=== PATIENT | female | born 1950 | race Hispanic/Latino ===

== ENCOUNTER → 2018-10-29 | Outpatient (CLI) | payer MEDICARE, OTHER ==
[~2018-10-29] MED LIST: GABAPENTIN100 MG; METFORMIN HCL500 MG PO
[2018-10-29 14:49] LABS: BASOPHILS % 0.3 % (0.0-1.0); EOSINOPHILS # (AUTO) 0.2 (0.0-0.4); EOSINOPHILS % 1.9 % (0.0-6.0); HEMATOCRIT 37.2 % (34.2-44.1); HEMOGLOBIN 12.1 g/dL (12.0-16.0); LYMPHOCYTES # (AUTO) 2.8 (1.0-3.2); LYMPHOCYTES % 28.2 % (18.0-39.1); MEAN CORPUSCULAR HEMOGLOBIN 28.5 pg (28-32); MEAN CORPUSCULAR HGB CONC 32.5 g/dL (31-35); MEAN CORPUSCULAR VOLUME 87.7 fL (81-99); MONOCYTES # (AUTO) 0.4 (0.2-0.8); MONOCYTES % 4.4 % (4.4-11.3); NEUTROPHILS # (AUTO) 6.3 (2.1-6.9); NEUTROPHILS % 64.6 % (38.7-80.0); PLATELET COUNT 286 x10e3/uL (140-360); RED BLOOD COUNT 4.24 x10e6/uL (3.6-5.1); RED CELL DISTRIBUTION WIDTH 15.4 % (11.7-14.4)
== END ==
LOC: RAD 05:00 → EDSTATUS 11-04 11:30
PROVIDERS: ATTEND Internal Medicine Gastroenterology
DX: Z01.818 Encounter for other preprocedural examination (principal); Z12.11 Encounter for screening for malignant neoplasm of colon; R19.7 Diarrhea, unspecified; K21.9 Gastro-esophageal reflux disease without esophagitis; Z53.8 Procedure and treatment not carried out for other reasons
CPT/HCPCS: 36415; 85025; 93005

== ENCOUNTER → 2020-11-29 | Day surgery (SDC) | payer MEDICARE, OTHER ==
[2020-11-25 12:31] LABS: BASOPHILS # (AUTO) 0.1 (0.0-0.1); BASOPHILS % 0.5 % (0.0-1.0); EOSINOPHILS # (AUTO) 0.2 (0.0-0.4); HEMATOCRIT 35.2 % (34.2-44.1); HEMOGLOBIN 10.9 g/dL (12.0-16.0); LYMPHOCYTES # (AUTO) 2.8 (1.0-3.2); LYMPHOCYTES % 29.6 % (18.0-39.1); MEAN CORPUSCULAR HEMOGLOBIN 26.6 pg (28-32); MEAN CORPUSCULAR VOLUME 85.9 fL (81-99); MONOCYTES # (AUTO) 0.4 (0.2-0.8); MONOCYTES % 3.9 % (4.4-11.3); NEUTROPHILS # (AUTO) 6.1 (2.1-6.9); NEUTROPHILS % 63.7 % (38.7-80.0); PLATELET COUNT 303 x10e3/uL (140-360); RED CELL DISTRIBUTION WIDTH 15.2 % (11.7-14.4)
[2020-11-25 12:46] LABS: INR 0.88; PROTHROMBIN TIME 12.3 seconds (11.9-14.5)
[2020-11-25 12:47] LABS: PARTIAL THROMBOPLASTIN TIME 28.9 seconds (23.8-35.5)
[2020-11-25 12:55] LABS: ALBUMIN 3.5 g/dL (3.5-5.0); ALBUMIN/GLOBULIN RATIO 0.9 (0.8-2.0); CALCIUM 8.6 mg/dL (8.4-10.2); CHOL/HDL RATIO 4.6 (3.0-3.6); CREATININE, SERUM 0.91 mg/dL (0.57-1.11)
[2020-11-29] VITALS (13 sets, daily range): BP systolic 118–155; BP diastolic 54–80
[~2020-11-29] VITALS: Ht 149.9 cm; Wt 65.8 kg
[~2020-11-29] MED LIST changes: +ASPIRIN 325 MG TAB ONE; +ATORVASTATIN CA10 MG PO; +CLOPIDOGREL BISULFATE 75 MG TAB ONE; +FENTANYL CITRATE/PF 100MCG/2 ML INJ ONE; +HEPARIN SOD (PORCINE) 1000 UNIT/ML 30ML ONE; +HEPARIN SOD/SOD CHLORIDE 2,000 ML ONE; +IOPAMIDOL 300MG/ML 100 ML INFUS..BTL IV ONE; +LIDOCAINE HCL 2% LOCAL 20 ML VIAL ONE; +MIDAZOLAM HCL 2 MG/2 ML VIAL ONE; +SODIUM CHLORIDE 0.9% 1000ML 1,000 ML ONE; +VERAPAMIL HCL 2.5 MG/ML 2 ML VIAL ONE
== END | disposition home or self-care (01) ==
LOC: CATH LAB 08:27
PROVIDERS: ATTEND Internal Medicine Cardiovascular Disease
DX: I70.213 Atherosclerosis of native arteries of extremities with intermittent claudication, bilateral legs (principal); I10 Essential (primary) hypertension; E78.5 Hyperlipidemia, unspecified; R60.0 Localized edema; E11.8 Type 2 diabetes mellitus with unspecified complications; R06.02 Shortness of breath; F17.210 Nicotine dependence, cigarettes, uncomplicated; Z01.812 Encounter for preprocedural laboratory examination; Z20.822 Contact with and (suspected) exposure to COVID-19; Z79.84 Long term (current) use of oral hypoglycemic drugs; Z79.82 Long term (current) use of aspirin
CPT/HCPCS: 36415; 37221; 37227; 76937; 80053; 80061; 85025; 85610; 85730; C1724; C1725 ×2; C1753; C1760; C1769 ×3; C1876 ×2; C1887 ×2; C1894; C2623; J1644; J2001; J2250; J3010; J7030; Q9967; U0002; 36247; 75630; 92978; 99152; 99153

== ENCOUNTER → 2021-06-13 | Day surgery (SDC) | payer MEDICARE, OTHER ==
[2021-06-10 10:51] LABS: BASOPHILS % 0.4 % (0.0-1.0); EOSINOPHILS # (AUTO) 0.3 (0.0-0.4); EOSINOPHILS % 2.3 % (0.0-6.0); HEMATOCRIT 38.2 % (34.2-44.1); HEMOGLOBIN 11.7 g/dL (12.0-16.0); LYMPHOCYTES # (AUTO) 2.8 (1.0-3.2); LYMPHOCYTES % 25.2 % (18.0-39.1); MEAN CORPUSCULAR HEMOGLOBIN 25.1 pg (28-32); MEAN CORPUSCULAR HGB CONC 30.6 g/dL (31-35); MONOCYTES # (AUTO) 0.5 (0.2-0.8); MONOCYTES % 4.4 % (4.4-11.3); NEUTROPHILS # (AUTO) 7.4 (2.1-6.9); NEUTROPHILS % 67.2 % (38.7-80.0); PLATELET COUNT 362 x10e3/uL (140-360); RED BLOOD COUNT 4.66 x10e6/uL (3.6-5.1); RED CELL DISTRIBUTION WIDTH 17.7 % (11.7-14.4)
[2021-06-10 11:16] LABS: INR 0.85; PROTHROMBIN TIME 12.4 seconds (11.9-14.5)
[2021-06-10 11:17] LABS: ALBUMIN 3.3 g/dL (3.5-5.0); ALBUMIN/GLOBULIN RATIO 0.7 (0.8-2.0); ANION GAP 14.7 mmol/L (8-16); CALCIUM 9.4 mg/dL (8.4-10.2); CHOL/HDL RATIO 4.3 (3.0-3.6); CREATININE, SERUM 0.92 mg/dL (0.57-1.11); PARTIAL THROMBOPLASTIN TIME 29.6 seconds (23.8-35.5); POTASSIUM 4.7 mmol/L (3.5-5.1)
[~2021-06-13] VITALS: Ht 149.9 cm; Wt 66.2 kg
[2021-06-13] VITALS (13 sets, daily range): BP systolic 94–125; BP diastolic 44–57
[~2021-06-13] MED LIST changes: +ABILIFY5 MG PO; +AMBIEN5 MG PO; +ASPIRIN81 MG PO; +ATORVASTATIN CA20 MG PO; +CILOSTAZOL100 MG PO; +FOLIC ACID PO; +GLIMEPIRIDE2 MG PO; +JANUVIA100 MG PO; +NAPROSYN500 MG PO; +NITROGLYCERIN/D5W 200 MCG/ML 250 ML ONE; +NITROGLYCERIN0.4 MG SL; +OXYBUTYNIN CHLOR5 MG PO; +PLAVIX75 MG PO; +SERTRALINE HCL100 MG PO; +SODIUM CHLORIDE 0.9% 500ML 500 ML ONE; +SYNJARDY 12.5-1 EACH PO; +TRANEXAMIC ACID 20 ML ONE; +VASOTEC5 MG PO; +Vancomycin IV 1,000 MG ONE
== END | disposition home or self-care (01) ==
LOC: CATH LAB 07:53
PROVIDERS: ATTEND Internal Medicine Cardiovascular Disease
DX: I70.213 Atherosclerosis of native arteries of extremities with intermittent claudication, bilateral legs (principal); I10 Essential (primary) hypertension; E78.5 Hyperlipidemia, unspecified; E11.8 Type 2 diabetes mellitus with unspecified complications; F17.210 Nicotine dependence, cigarettes, uncomplicated; Z01.812 Encounter for preprocedural laboratory examination; Z20.822 Contact with and (suspected) exposure to COVID-19; Z79.82 Long term (current) use of aspirin; Z79.02 Long term (current) use of antithrombotics/antiplatelets; Z79.84 Long term (current) use of oral hypoglycemic drugs; Z79.899 Other long term (current) drug therapy; Z82.49 Family history of ischemic heart disease and other diseases of the circulatory system
CPT/HCPCS: 36415; 37227; 75710; 76937 ×2; 80053; 80061; 85025; 85610; 85730; C1724; C1725; C1769 ×2; C1876; C1887; J1644; J2001; J2250; J3010; J3370; J7030; J7040; Q9967; U0002; 36247; 37225; 99152; 99153

== ENCOUNTER → 2021-10-12 | Outpatient (CLI) | payer MEDICARE, OTHER ==
[~2021-10-12] MED LIST changes: -ASPIRIN 325 MG TAB ONE; -CLOPIDOGREL BISULFATE 75 MG TAB ONE; -FENTANYL CITRATE/PF 100MCG/2 ML INJ ONE; -HEPARIN SOD (PORCINE) 1000 UNIT/ML 30ML ONE; -HEPARIN SOD/SOD CHLORIDE 2,000 ML ONE; -IOPAMIDOL 300MG/ML 100 ML INFUS..BTL IV ONE; -LIDOCAINE HCL 2% LOCAL 20 ML VIAL ONE; -MIDAZOLAM HCL 2 MG/2 ML VIAL ONE; -NITROGLYCERIN/D5W 200 MCG/ML 250 ML ONE; -SODIUM CHLORIDE 0.9% 1000ML 1,000 ML ONE; -SODIUM CHLORIDE 0.9% 500ML 500 ML ONE; -TRANEXAMIC ACID 20 ML ONE; -VERAPAMIL HCL 2.5 MG/ML 2 ML VIAL ONE; -Vancomycin IV 1,000 MG ONE
== END ==
LOC: MAMMO 12:08
PROVIDERS: ATTEND Internal Medicine
DX: Z12.31 Encounter for screening mammogram for malignant neoplasm of breast (principal)
CPT/HCPCS: 77067

== ENCOUNTER 2023-12-04 19:45 | Emergency (ER) | payer MEDICARE, OTHER ==
[~2023-12-04] VITALS: Ht 149.9 cm; Wt 63.5 kg
[2023-12-04 19:54] VITALS: PULSE 77; RESP 19; TEMP 97.9
[2023-12-04] MEDS: DEXAMETHASONE SOD PHOS 10 MG/1 ML VIAL IM STA (20:02)
[2023-12-04] MEDS: KETOROLAC TROMETHAMINE 30 MG/ML VIAL IM ONE (20:03)
[2023-12-04] MEDS ORDERED: DEXAMETHASONE SOD PHOS 10 MG/1 ML VIAL ONE (20:06)
[2023-12-04] MEDS ORDERED: KETOROLAC TROMETHAMINE 30 MG/ML VIAL ONE (20:06)
[2023-12-04 21:11] VITALS: BP 146/58; PULSE 64; RESP 16; TEMP 98.1; O2SAT 99
[2023-12-04] MEDS ORDERED: PREDNISONE20 MG PO (21:12)
[2023-12-04] MEDS ORDERED: KETOROLAC TROME10 MG PO (21:12)
== END 2023-12-04 21:15 | disposition home or self-care (01) ==
LOC: ER 19:52
DX: M54.50 Low back pain, unspecified (principal); G89.29 Other chronic pain; E11.9 Type 2 diabetes mellitus without complications
CPT/HCPCS: 72131; 99283; J1100; J1885

== ENCOUNTER → 2024-11-13 | Outpatient (REF) | payer MEDICARE, OTHER ==
[~2024-11-13] MED LIST changes: +KETOROLAC TROME10 MG PO; +PREDNISONE20 MG PO
== END ==
LOC: MRI 12:45
PROVIDERS: ATTEND Student in an Organized Health Care Education/Training Program
DX: M54.16 Radiculopathy, lumbar region (principal)
CPT/HCPCS: 72148